=== PATIENT | female | born 1970 | race Caucasian/White ===

== ENCOUNTER → 2017-12-15 | Outpatient (CLI) | payer BC | END | disposition home or self-care (01) | LOC: CFH 15:05 | DX: Z12.31 Encounter for screening mammogram for malignant neoplasm of breast (principal) | CPT/HCPCS: 77067 ==

== ENCOUNTER → 2017-12-27 | Outpatient (CLI) | payer BC | END | disposition home or self-care (01) | LOC: CFH 14:14 | DX: N64.89 Other specified disorders of breast (principal); N63.10 Unspecified lump in the right breast, unspecified quadrant; R92.8 Other abnormal and inconclusive findings on diagnostic imaging of breast | CPT/HCPCS: 77065 ==

== ENCOUNTER → 2018-01-10 | Outpatient (CLI) | payer BC ==
[~2018-01-10] MED LIST: LIDOCAINE 1%, 20ML ONE; LIDOCAINE 1%-EPI 1:100K, 30ML ONE
== END | disposition home or self-care (01) ==
LOC: CFH 09:12
DX: N63.10 Unspecified lump in the right breast, unspecified quadrant (principal)
CPT/HCPCS: 19083; 77065; 88305; J3490

== ENCOUNTER → 2019-01-04 | Outpatient (CLI) | payer BC | END | disposition home or self-care (01) | LOC: CFH 12:07 | PROVIDERS: ATTEND Obstetrics & Gynecology | DX: Z12.31 Encounter for screening mammogram for malignant neoplasm of breast (principal) | CPT/HCPCS: 77063; 77067 ==

== ENCOUNTER → 2020-01-16 | Outpatient (CLI) | payer BC | END | disposition home or self-care (01) | LOC: CFH 11:58 | PROVIDERS: ATTEND Obstetrics & Gynecology | DX: Z12.31 Encounter for screening mammogram for malignant neoplasm of breast (principal); N64.89 Other specified disorders of breast | CPT/HCPCS: 77063; 77067 ==

== ENCOUNTER 2021-01-31 13:00 | Outpatient (CLI) | payer BC | END 2021-01-31 23:59 | disposition home or self-care (01) | LOC: CFH 13:00 | PROVIDERS: ATTEND Obstetrics & Gynecology | DX: Z12.31 Encounter for screening mammogram for malignant neoplasm of breast (principal) | CPT/HCPCS: 77063; 77067 ==

== ENCOUNTER → 2021-04-04 | Outpatient (CLI) | payer BC ==
[~2021-04-04] MED LIST changes: +B CO1TAB14 PO; +CALC1CAP8 PO; +CHOL200052 PO; +GLUC1CAP40 PO; -LIDOCAINE 1%, 20ML ONE; -LIDOCAINE 1%-EPI 1:100K, 30ML ONE; +MAGN250T8 PO; +MULT-449 PO; +NATA300V2 IV; +PROG100C16 PO; +cranberry PO; +estrogen PO
[2021-04-04 15:58] LABS: BASOPHILS % (AUTO) 1 % (0-1); EOSINOPHILS % (AUTO) 6 % (1-7); LYMPHOCYTES % (AUTO) 39 % (22-44); MD NO; MEAN CORPUSCULAR HEMOGLOBIN 31.4 pg (27.0-34.8); MEAN CORPUSCULAR HGB CONC 33.9 g/dL (32.4-35.8); MEAN PLATELET VOLUME 8.5 fL (7.4-10.4); MONOCYTES % (AUTO) 10 % (2-9); NEUTROPHILS % (AUTO) 44 % (42-75); PLATELET COUNT 205 x10^3/uL (130-400); RED BLOOD COUNT 4.53 x10^6/uL (3.82-5.3); RED CELL DISTRIBUTION WIDTH 13.6 % (9.6-15.2)
[2021-04-04 15:59] LABS: MICROSCOPIC AUTO
== END | disposition home or self-care (01) ==
LOC: STAR 14:57
PROVIDERS: ATTEND Obstetrics & Gynecology
DX: Z01.812 Encounter for preprocedural laboratory examination (principal); N95.0 Postmenopausal bleeding; N84.0 Polyp of corpus uteri; Z20.822 Contact with and (suspected) exposure to COVID-19
CPT/HCPCS: 36415; 81001; 85025; 87086; U0003; U0005

== ENCOUNTER 2021-04-10 08:30 | Day surgery (SDC) | payer BC ==
[~2021-04-10] VITALS: Ht 165.1 cm; Wt 70.1 kg
[2021-04-10] MEDS ORDERED: CHLORHEXIDINE 15 ML UDC PO ONE (09:30)
[2021-04-10] MEDS ORDERED: LACTATED RINGERS 1,000 ML IV SCH (09:30)
[2021-04-10] MEDS ORDERED: MIDAZOLAM 1 MG/ML, 2ML ONE (10:10)
[2021-04-10] MEDS ORDERED: FENTANYL PF 100 MCG/2ML ONE ×2 (10:10→11:33)
[2021-04-10] MEDS ORDERED: HYDROmorphone 2 MG/ML, 1ML IVPush PRN (10:30)
[2021-04-10] MEDS ORDERED: KETOROLAC 30 MG/1 ML IV PRN (10:30)
[2021-04-10] MEDS ORDERED: DIAZEPAM 5 MG/ML, 2ML IVPush PRN (10:30)
[2021-04-10] MEDS ORDERED: ACETAMINOPHEN 325 MG TABLET PO PRN (10:30)
[2021-04-10] MEDS ORDERED: LABETALOL 5MG/ML, 20ML IV PRN (10:30)
[2021-04-10] MEDS ORDERED: OXYcodone 5 MG/5 ML ORAL.SOL UDC PO PRN (10:30)
[2021-04-10] MEDS ORDERED: ALBUTEROL SULFATE 2.5 MG/3 ML NPPB PRN (10:30)
[2021-04-10] MEDS ORDERED: MEPERIDINE/PF 25MG/0.5ML IVPush PRN (10:30)
[2021-04-10] MEDS ORDERED: hydrALAzine 20 MG/ML, 1ML IV PRN (10:30)
[2021-04-10] MEDS ORDERED: PROMETHAZINE 25 MG/ML, 1ML IV PRN (10:30)
[2021-04-10] MEDS ORDERED: SILVER NITRATE STICK TP ONE (10:44)
[2021-04-10] MEDS ORDERED: BUPIVACAINE/PF 0.25% ONE (10:44)
[2021-04-10] MEDS ORDERED: DEXAMETHASONE 4 MG/ML, 1ML ONE (10:55)
[2021-04-10] MEDS ORDERED: GLYCOPYRROLATE 0.2MG/1ML, 5ML ONE (11:01)
[2021-04-10] MEDS ORDERED: ONDANSETRON 2MG/ML, 2ML ONE (11:01)
[2021-04-10] MEDS ORDERED: ROCURONIUM 10MG/ML,5ML ONE (11:01)
[2021-04-10] MEDS ORDERED: CEFAZOLIN 1,000 MG ONE (11:01)
[2021-04-10] MEDS ORDERED: SUCCINYLCHOLINE 20 MG/ML, 10ML ONE (11:01)
[2021-04-10] MEDS ORDERED: NEOSTIGMINE 1 MG/ML, 10ML ONE (11:01)
[2021-04-10] MEDS ORDERED: PROPOFOL 10 MG/ML, 20ML ONE (11:01)
[2021-04-10] MEDS ORDERED: KETOROLAC 30 MG/1 ML ONE (11:33)
[2021-04-10] MEDS: FENTANYL PF 100 MCG/2ML IV PRN ×2 (11:35→11:47)
[2021-04-10] MEDS ORDERED: ACETAMINOPHEN 650 MG/20.3 ML UDC ONE (11:49)
[2021-04-10] MEDS ORDERED: OXYcodone 5 MG/5 ML ORAL.SOL UDC ONE (11:49)
== END 2021-04-10 13:10 | disposition home or self-care (01) ==
LOC: OUT 08:30
PROVIDERS: ATTEND Obstetrics & Gynecology
DX: N84.0 Polyp of corpus uteri (principal); G35 Multiple sclerosis; Z79.899 Other long term (current) drug therapy; Z98.890 Other specified postprocedural states; Z82.61 Family history of arthritis; Z83.3 Family history of diabetes mellitus; Z80.0 Family history of malignant neoplasm of digestive organs
CPT/HCPCS: 58558; 88305; J1100; J1885; J2250; J2405; J2704; J3010; J7120; J0690; J2710; J0330